=== PATIENT | male | born 1950 ===

== ENCOUNTER 2018-12-15 09:55 | Inpatient (IN) ==
--- NOTE | 2018-11-30 12:16 | PAT Medication Instructions ---
Medication Instructions Date of Service November 30, 2018 Home Medications amlodipine 5 mg oral daily in the morning atorvastatin 20 mg oral at bedtime diclofenac sodium 75 mg oral twice a day loratadine [Claritin] 10 mg oral daily in the evening metoprolol tartrate 25 mg oral twice a day multivitamin 1 tab oral daily in the morning venlafaxine [Effexor XR] 75 mg oral at bedtime Vinegar 1 tab oral twice a day aspirin [Aspir-Low] 81 mg oral daily in the evening tamsulosin 0.4 mg oral daily in the evening vitamin B complex 1 tab oral daily in the morning ASK your surgeon for instructions diclofenac sodium 75 mg oral twice a day DO NOT take the morning of surgery multivitamin 1 tab oral daily in the morning Vinegar 1 tab oral twice a day vitamin B complex 1 tab oral daily in the morning Take morning of surgery With a small sip of water, OTHERWISE NOTHING TO EAT OR DRINK AFTER MIDNIGHT: amlodipine 5 mg oral daily in the morning metoprolol tartrate 25 mg oral twice a day Take evening before surgery atorvastatin 20 mg oral at bedtime loratadine [Claritin] 10 mg oral daily in the evening metoprolol tartrate 25 mg oral twice a day venlafaxine [Effexor XR] 75 mg oral at bedtime Vinegar 1 tab oral twice a day tamsulosin 0.4 mg oral daily in the evening Other Notes If you have any questions please call us at [phone] or [phone] or [phone] or [phone]
--- NOTE | 2018-11-30 12:18 | Anesthesiology Consultation ---
Date of Service November 30, 2018 Assessment & Plan (1) Encounter for pre-operative examination: Chart Review Chart Review: Acceptable Risk for Surgery and Patient seen in Pre Admission Testing Teaching & Discussion Instructed NPO after midnight before surgery, except medications with 15 cc of water. Medication instructions provided according to the PAT guidelines. History Surgery Operation Date: 12/15/18 07:00 Proposed Procedures p Right Total Knee Replacement - Solitario Madrigal MD Height/Weight Height: 5 ft 9 in Weight: 123.9 kg Allergies Allergy/AdvReac Type Severity Reaction Status Date / Time No Known Allergies Allergy Verified 11/30/18 11:47 Medications Home Medications Medication Instructions Recorded Confirmed Last Taken Vinegar Tab 1 tab PO BID 11/30/18 11/30/18 Unknown amlodipine 5 mg PO QAM 11/30/18 11/30/18 Unknown aspirin [Aspir-Low] 81 mg PO QPM 11/30/18 11/30/18 Unknown atorvastatin [Lipitor] 20 mg PO HS 11/30/18 11/30/18 Unknown diclofenac sodium 75 mg PO BID 11/30/18 11/30/18 Unknown loratadine [Claritin] 10 mg PO QPM 11/30/18 11/30/18 Unknown metoprolol tartrate 25 mg PO BID 11/30/18 11/30/18 Unknown multivitamin 1 tab PO QAM 11/30/18 11/30/18 Unknown tamsulosin 0.4 mg PO QPM 11/30/18 11/30/18 Unknown venlafaxine [Effexor XR] 75 mg PO HS 11/30/18 11/30/18 Unknown vitamin B complex 1 tab PO QAM 11/30/18 11/30/18 Unknown Past Medical History Medical History Anxiety Episode of syncope Prompted cardiac workup, 05/2018. All testing WNL. Hyperlipidemia Hypertension Morbid obesity Osteoarthritis Urinary frequency AT HS Past Family History Family History Brother Family history of diabetes mellitus Past Surgical History Surgical History History of adenoidectomy History of arthroscopy LEFT SHOULDER History of cardiac cath OVER 10 YEARS AGO (NO STENTS) [facility]. DONE TO EVALUATE CP, CATH WAS NORMAL, CP RULED 2/2 CELEBREX History of colonoscopy History of knee surgery RT/LEFT LIGAMENT/TENDON REPAIRS History of tonsillectomy History of tooth extraction History of total knee replacement LEFT Past Anesthesia History No Hx of Anesthesia Complications and No Family Hx of Anesthesia Complications History of PONV No Motion Sickness Screening History of Motion Sickness: No Social History Smoking Status: Former smoker tobacco type: smokeless tobacco Do You Dip or Chew Tobacco: Yes (5 CANS WEEKLY) Smoking End Date: QUIT 50 YEARS AGO Hx Alcohol Use: Yes Alcohol type: beer and other alcohol intake frequency: holidays/special occasions only Alcohol Intake Frequency Comment: NO DRINK FOR 5 MONTHS (OTHER IS MOONSHINE) Hx Substance Use: No substance use type: does not use Exercise / Class Metabolic Activity II 4-5 Yardwork/Stairs/Walk up hill (denies CP or SOB with stairs) Review of Systems Pt denies any recent chest pain, shortness of breath, palpitations, cough, fever or URI. Physical Exam Vital Signs BP: 120/70 P: 67bpm SPO2: 95% RA T: 97.8 F R: 20 ENMT Mouth: + dentures (partial upper) and + small oral opening; no chipped teeth and no loose teeth Thyromental Distance: < 3.5 Finger Breadths (3) Mallampati Class: III Neck + thick neck and + facial hair (short tran and mustache); neck extension not limited Respiratory normal respiratory effort Auscultation: lungs clear to auscultation bilaterally Cardiovascular Rate/Rhythm: regular rate and regular rhythm Heart Sounds: no murmur Vessels: no carotid bruit Testing Electrocardiogram Date: 11/30/18 Findings: + NSR @ (66) Chest X-Ray Date: 11/16/18 Findings: + NAD Echocardiogram Date: 05/31/18 EF: 63% Left ventricular cavity size is normal. Left ventricular wall thickness is mildly increased. No LV mural thrombus. LV wall motion is normal. No significant valvular abnormalities. Other Testing Carotid Duplex 05/31/18 Less than 50% stenosis of both left and right internal carotid arteries. Holter Monitor 05/31/18 Duration: 24hrs Dominant Rhythm: SR 47-118bpm, avg 74bpm Few isolated PVCs and PACs, no VT or SVT. No symptoms reported. Laboratory Results Blood Type A Positive 11/30/18 12:34 Antibody Screen NEGATIVE 11/30/18 12:34 PT 10.3 Seconds (9.0-12.0) 11/30/18 12:34 INR 1.0 (0.9-1.1) 11/30/18 12:34 APTT 25.1 Seconds (21.0-31.0) 11/30/18 12:34 10/25/18 WBC: 6.5 H/H: 16.0/46.9 PLATELETS: 212 10/18/18 SODIUM: 141 POTASSIUM: 4.3 CHLORIDE: 105 CO2: 29 BUN: 16 CREATININE: 1.1 GLUCOSE: 127
[2018-11-30 13:18] LABS: Partial Thromboplastin Ratio 0.9; Partial Thromboplastin Time 25.1 Seconds (21.0-31.0); Prothrombin Time 10.3 Seconds (9.0-12.0)
--- NOTE | 2018-12-06 17:03 | History and Physical Report ---
DATE OF ADMISSION: 12/15/2018 CHIEF COMPLAINT: Right knee pain. HISTORY OF PRESENT ILLNESS: The patient is a 68-year-old gentleman from [place], who presents for surgical treatment of his right knee. He has got several-year history of increasing right knee pain and discomfort. He is well known to me from having his left knee replaced back in September of 2011. He has done well from this side. Over the years, his right knee started to bother him more and more. He has had injections in the past that most recently have not helped at all. Pain is mostly on the medial side, but a little bit globally. The more he walks, the more it hurts. He has difficulty putting his shoes and socks on. He has a limited walking tolerance. He has nighttime pain. He has difficulty going up and down stairs. He is not interested in further conservative treatment and would like to have his right knee replaced. Of note, the patient's knee pain has got significantly worse since April of this year when he sustained a syncopal episode and a fall. He had a negative workup. PAST MEDICAL HISTORY: Significant for: 1. Hypertension. 2. Elevated cholesterol. 3. Sleep apnea. 4. Hiatal hernia. 5. Arthritis. PAST SURGICAL HISTORY: Previous surgeries include: 1. Left knee open meniscectomy 25 years ago. 2. Left knee replacement on 10/01/2011. 3. Right knee arthroscopy. 4. Left shoulder surgery. ALLERGIES: None. CURRENT MEDICINES: Include: 1. Metoprolol 25 mg. 2. Amlodipine 5 mg. 3. Tamsulosin 0.4 mg. 4. Effexor 75 mg. 5. Diclofenac 75 mg twice a day. 6. Aspirin 81 mg a day. 7. Lipitor 20 mg a day. 8. Multivitamin. 9. B complex. 10. Vitamin pill. SOCIAL HISTORY: A 68-year-old male. He is from [facility] and more specifically [place]. He is . He does chew snuff. No significant alcohol intake. FAMILY HISTORY: Significant for heart disease. REVIEW OF HISTORY: Negative for diabetes, neurologic problems, vascular problems or bleeding disorders. Denies any chest pain or shortness of breath. No history of DVT or PE. No known bleeding problems. PHYSICAL EXAMINATION: GENERAL: Physical examination shows a healthy 68-year-old gentleman. Looks to be in pretty good health. HEENT: Benign. NECK: Supple. No lymphadenopathy. LUNGS: Clear to auscultation. HEART: Has a regular rate and rhythm. ABDOMEN: Soft, nontender, nondistended. EXTREMITIES: Grossly neurovascularly intact except as follows: Examination of the right knee reveals patient walks with a bit of a limp. He has got varus alignment to his knee. He is tender over the medial joint line. Small knee effusion. Range of motion is 5 to 125. No instability. He does have stiffness with hip motion, but minimal pain. X-RAYS: X-rays of the right knee revealed advanced medial compartment DJD. He has got complete loss of his medial joint space. He has got some tibial femoral subluxation. He has got chondrocalcinosis. X-rays of the hip show some moderate hip arthritis as well bilaterally. A little bit less severe than his knee. A little bit joint space remaining. ASSESSMENT: A 68-year-old gentleman 7 years out from left knee replacement with: 1. Advanced right knee degenerative joint disease. 2. Moderate to severe bilateral hip degenerative joint disease. PLAN: We talked about treatment options. He has failed conservative treatment and would like to proceed with surgical intervention. We talked both about hip and knee replacement surgery and his had a bad experience at [facility] with hip surgery and he has no interest in proceeding along this course, but would like his right knee replaced. Seems like most of his ____ is coming from his knee, I think that is reasonable at this point. We are going to take him to the operating room and do a right total knee replacement. The risks and benefits of this procedure were explained to the patient including but not limited to DVT, PE, , infection, neurological injury, vascular injury, bleeding problem, pain, limited range of motion, stiffness, failure to relieve the symptoms, incomplete relief of symptoms, need for further surgery in the future, fracture, leg length inequality, nerve palsy, etc. The patient understands and desires to proceed. Informed consent was obtained. I did tell him that he is going to likely have some residual pain and discomfort from his hips and he is fully aware of this. We did talk to him about taking his metoprolol the morning of surgery with a sip of water. He stopped his diclofenac 2 weeks preop. We will plan on DVT prophylaxis including TEDs, SCDs, and a baby aspirin twice a day.
[~2018-12-15 09:55] MED LIST: ACETAMINOPHEN 500 MG TAB PO SCH; BUPIVACAINE 0.5 % 5 MG/1 ML PF 10ML VIAL ONE; BUPIVACAINE LIPOSOME/PF 266 MG, BUPIVACAINE/EPINEPHRINE 50 ML, SODIUM CHLORIDE 0.9% 30 ... INFIL SCH; CEFAZOLIN 3000MG 65 ML IV SCH; EPINEPHrine INJ 1 MG/ML AMP ONE; FAMOTIDINE 20 MG TAB PO SCH; GABAPENTIN 300 MG PO SCH; LR 500ML BOLUS, THEN 15ML/HR IV SCH; LR 60ML/HR IV SCH; METOCLOPRAMIDE HCL 10 MG TABLET PO SCH; ROPIVACAINE 0.5% 5 MG/ML 30 ML VIAL ONE; SCOPOLAMINE 1.5 MG TDSY TD SCH; TRANEXAMIC ACID 1,000 MG **IV Intra-op IV SCH
--- NOTE | 2018-12-15 10:49 | History & Physical Bridge Note ---
Date of Service December 15, 2018 History & Physical Bridge Note I have examined the patient, reviewed the History & Physical and in the interval since the performance of the History & Physical I have noted the following changes of clinical significance: no changes noted
[2018-12-15] MEDS ORDERED: fentaNYL citrate 100 MCG/2 ML VIAL ONE (12:00)
[2018-12-15] MEDS ORDERED: MIDAZOLAM HCL 1 MG/ML 2ML VIAL ONE (12:00)
[2018-12-15] MEDS ORDERED: LIDOCAINE HCL 2% 2 ML VIAL/AMP(20MG/ML) INFIL ONE (12:00)
[2018-12-15] MEDS ORDERED: PROPOFOL IV EMULSION 10 MG/ML 20 ML VIAL IV ONE (12:00)
[2018-12-15] MEDS ORDERED: BACITRACIN INJ 50,000 UNIT VIAL ONE (12:36)
[2018-12-15] MEDS ORDERED: BUPIVACAINE/EPINEPHRINE 0.5% MPF 1:200,000 30 ML VIAL ONE (12:36)
[2018-12-15] MEDS ORDERED: BUPIVACAINE 0.25% 30 ML VIAL ONE (12:44)
[2018-12-15] MEDS ORDERED: EpINEphrine HCL INJ 1 MG/ML 1ML SYRINGE ONE (12:45)
[2018-12-15] MEDS ORDERED: BUPIVACAINE LIPOSOME 1.3% 266 MG/20 ML VIAL ONE (12:45)
[2018-12-15] MEDS ORDERED: SODIUM CHLORIDE 0.9% INJ 10 ML VIAL ONE (13:21)
[2018-12-15] MEDS ORDERED: ONDANSETRON INJ 2 MG/ML 2 ML VIAL ONE (13:27)
[2018-12-15] MEDS ORDERED: ePHEDrine sulfate 50 MG/ML SYR ONE (13:27)
[2018-12-15] MEDS ORDERED: PHENYLEPHRINE 100MCG/ML 5ML SYR ONE (13:27)
--- NOTE | 2018-12-15 14:38 | Post Operative Brief Note ---
Immediate Post Op Note v1 Date of Surgery December 15, 2018 Pre & Post Diagnosis Operation Date: 12/15/18 12:30 Pre-Op Diagnosis: Advanced Right Knee Degenerative Joint Desease Post-Op Diagnosis: Advanced Right Knee Degenerative Joint Desease Procedure Operation Date: 12/15/18 12:30 Actual Procedures p Right Total Knee Replacement(Right) - Solitario Madrigal MD Surgeon Solitario Madrigal MD [employer] [place], PAC Estimated Blood Loss 50 Findings Consistent with Post-Op Diagnosis Fluids 1400 cc Specimens Right Knee Drains Hansen Catheter Anesthesia Type Spinal MAC Complications none Disposition Disposition: Recovery Room
[2018-12-15] MEDS ORDERED: ePHEDrine sulfate 50 MG/ML AMP IV PRN (14:51)
[2018-12-15] MEDS ORDERED: ATROPINE SULFATE 0.1 MG/ML 10ML SYR IV PRN (14:51)
--- NOTE | 2018-12-15 14:56 | XRay Report ---
RIGHT KNEE 2 VIEWS History: Right total knee arthroplasty. Degenerative arthritis. Postop. FINDINGS: The patient is status post a right total knee arthroplasty. The hardware is intact. No frac ture or dislocation. Skin maurice are in place. IMPRESSION: Right total knee arthroplasty. No evidence for hardware complication. Electronically signed by: Kenneth Daily M.D. 12/15/2018 2:55 PM
--- NOTE | 2018-12-15 15:11 | Anesthesiology Progress Note ---
Date of Service December 15, 2018 Anesthesia Post Procedure Vital Signs Vital Signs: Temp Pulse Pulse Resp BP Pulse Ox 12/15/18 15:05 77 16 105/60 92 12/15/18 14:55 74 18 110/62 99 12/15/18 14:45 36.5 C 79 17 105/57 L 98 12/15/18 10:31 36.8 C 66 18 137/72 96 Notes Mental Status: alert / awake / arousable Patient Amnestic to Procedure: Yes Nausea / Vomiting: adequately controlled Pain: adequately controlled Airway Patency, RR, SpO2: stable & adequate BP & HR: stable & adequate Hydration State: stable & adequate Neuraxial Anesthesia: was administered and sensory block is resolving Anesthetic Complications: no major complications apparent
[2018-12-15] MEDS ORDERED: ALUMINUM/MAGNESIUM SUSP 30 ML UDC PO PRN (16:24)
[2018-12-15] MEDS ORDERED: HYDROmorphone INJ 0.5 MG/0.5 ML SYR IV PRN (16:24)
[2018-12-15] MEDS ORDERED: ONDANSETRON INJ 2 MG/ML 2 ML VIAL IV PRN (16:24)
[2018-12-15] MEDS ORDERED: METOCLOPRAMIDE HCL INJ 5 MG/ML 2 ML VIAL IV PRN (16:24)
[2018-12-15] MEDS ORDERED: BISACODYL 10 MG SUPP PR PRN (16:24)
[2018-12-15] MEDS ORDERED: TAMSULOSIN HCL 0.4 MG CAP PO PRN (16:24)
[2018-12-15] MEDS ORDERED: MAGNESIUM HYDROXIDE SUSP 30 ML UDC PO PRN (16:24)
[2018-12-15] MEDS ORDERED: NALOXONE HCL 0.4 MG/1 ML VIAL/CARP IV PRN (16:24)
--- NOTE | 2018-12-15 16:50 | Operative Report ---
DATE OF OPERATION: 12/15/2018 SURGEON: Solitario Madrigal MD [employer] MANAGEMENT SPECIALIST: KATELYN Lazaro PREOPERATIVE DIAGNOSIS: Right knee degenerative joint disease. POSTOPERATIVE DIAGNOSIS: Right knee degenerative joint disease. PROCEDURE PERFORMED: Right cemented posterior stabilized total knee arthroplasty. COMPLICATIONS: None. ESTIMATED BLOOD LOSS: 50 mL. FLUID REPLACEMENT: 1400 mL crystalloid fluid replacement. TOURNIQUET TIME: 60 minutes at 300 mmHg. ANESTHESIA: Spinal with adductor canal block. DRAINS: None. SPECIMENS: Right knee sent for pathology. OPERATIVE INDICATIONS: The patient is a 68-year-old gentleman who has had a long history of multiple joint problems and most specifically related to his knees. He underwent a left knee replacement several years ago and has done well from that. He continued to be bothered by right knee pain. He does have history of right knee scoped many years ago as well. He failed all conservative treatment. He elected to proceed with total knee arthroplasty on the right knee. OPERATIVE FINDINGS: Operative findings revealed advanced right knee DJD. He has extensive grade 4 changes in the medial and patellofemoral compartments. A varus deformity to his knee. He had a 10-degree flexion contracture. He had osteophytes, particularly posteriorly and medially. OPERATIVE IMPLANTS: Operative implants consisted of: 1. A Biomet Vanguard size 67.5 right posterior stabilized femoral component. 2. A Biomet size 75 tibial tray. 3. A 10 mm posterior stabilized polyethylene insert. 4. A 31 x 8 all poly patella. OPERATIVE PROCEDURE: The patient was taken to the operating room, identified and placed on the operating table in supine position. All contact areas were appropriately padded. IV antibiotics provided by anesthesia team. A spinal anesthetic and adductor canal block had been provided in the holding area. A Hansen catheter was placed in sterile fashion. Right thigh tourniquet was then placed and the right lower extremity was then prepped and draped in usual sterile fashion. The right leg was elevated and exsanguinated with Esmarch and tourniquet was placed at 300 mmHg. An anterior approach of the right knee was then performed through a longitudinal incision centered over the patella. Sharp dissection was carried through the subcutaneous tissue down to the level of the extensor mechanism. Medial parapatellar arthrotomy incision was made. Some subperiosteal dissection was carried out medially. The fat pad resected from beneath the patellar tendon. The lateral patellofemoral ligament was released. The patella was everted and knee was flexed. The osteophytes were taken off the distal femur. The ACL and PCL were then released from distal femur. The tibia subluxated anteriorly. External tibial alignment jig was then placed in the anterior face of the tibia and adjusted 16 mm medially. Proximal tibial cut was made to remove about a millimeter of bone from the most deficient aspect of the medial tibial plateau. Some osteophytes were taken off medial and posteromedially. Attention was then drawn to the femur. The distal femur was entered with a sharp drill bit. Intramedullary canal was suctioned. A right 6-degree valgus cutting guide was placed. Distal femoral cutting block was pinned in place. Distal femoral cut was made to take an additional 3 mm of bone off the distal femur. The femur was then sized to a size 67.5. We did downsize this slightly. The AP cutting block was pinned parallel to the epicondylar axis, which was 4 degrees of external rotation. The anterior cut, anterior chamfer cut, posterior cut, posterior chamfer cuts were made. Box cutting guide was placed and adjusted slightly lateral and the box cut was made. The knee was flexed. The remnants of the medial and lateral menisci were excised. The osteophytes were taken off the posterior aspect of the femur. Trial femoral component was placed. Tibial tray was pinned in maximum external rotation and the drill and stem punch were used to create defect in proximal tibia for the tibial tray. The knee was then trialed and the 10 mm insert fit most appropriately. Attention was then drawn to the patella. The patella was cleaned of all soft tissues. Patella thickness measured 22 mm in thickness, it was cut down to 14. It was sized to a size 31 patella. Lug holes were drilled for 31 patella. The lateral osteophyte was removed. Patella button was placed. Knee was taken through range of motion and patella tracked nicely with no thumbs test. Attention was then drawn toward placement of the permanent components. All trial components removed. Bone plug was placed in the distal femur to limit blood loss. A double batch of Palacos G cement was mixed. A Biomet Vanguard size 67.5 right posterior stabilized femoral component, size 75 tibial tray, a 10 mm posterior stabilized polyethylene insert, and a 31 x 8 all poly patella then cemented in place. Knee was brought down into full extension until cement hardened. A final cement check was then performed. Pericapsular tissues were injected with a total of 100 mL of combination of 20 mL of Exparel, 30 mL of normal saline, 50 mL of 0.25% Marcaine with epinephrine. The patient did receive 1 gram of tranexamic acid. The tourniquet was then let down for a tourniquet time of 60 minutes. Hemostasis was assured using electrocautery. The extensor mechanism was then closed with a combination of #1 PDS suture and #1 Vicryl suture in [id number] fashion. Extensor mechanism was checked and found to be intact. The subcutaneous tissue was then closed with #2 Dexon suture in a buried interrupted fashion. Skin was closed with skin maurice. Leg was then cleaned and dried and a sterile dressing of Xeroform, 4 x 4, sterile cast padding and Malcolm bandage were applied. The patient then transferred to the recovery room in stable condition. The patient tolerated the procedure well with no complication. All needle and sponge counts were correct at the end of the operation. I attest to the content of the Intraoperative Record and any orders documented therein. Any exception s are noted below.
[2018-12-15] MEDS: CHECK SCOPOLAMINE PATCH PLACEMENT SCH (17:35)
[2018-12-15] MEDS: SODIUM CHLORIDE 0.9% 1000ML 1,000 ML IV SCH (17:35)
[2018-12-15] MEDS: ASCORBIC ACID 500 MG TAB PO SCH (17:37)
[2018-12-15] MEDS: FERROUS GLUCONATE 324 MG TAB PO SCH (17:38)
[2018-12-15] MEDS: KETOROLAC TROMETHAMINE 15 MG/ML VIAL IV SCH (17:38)
[2018-12-15] MEDS: OXYCODONE HCL IR 5 MG TAB (IMMEDIATE RELEASE) PO PRN (20:49)
[2018-12-15] MEDS: LORATADINE 10 MG TAB PO SCH (20:55)
[2018-12-15] MEDS: METOPROLOL TARTRATE 25 MG TAB PO SCH (20:55)
[2018-12-15] MEDS: ASPIRIN 81 MG ECTAB PO SCH (20:56)
[2018-12-15] MEDS: DOCUSATE SODIUM 100 MG CAP PO SCH (20:56)
[2018-12-15] MEDS: VENLAFAXINE HCL XR 75 MG CAPXR PO SCH (20:56)
[2018-12-15] MEDS: SENNA 8.6 MG TAB PO SCH (20:57)
[2018-12-15] MEDS: TAMSULOSIN HCL 0.4 MG CAP PO SCH (20:57)
[2018-12-15] MEDS: ATORVASTATIN 20 MG TAB PO SCH (20:57)
[2018-12-15] MEDS ORDERED: VINEGAR PO SCH (21:00)
[2018-12-15] MEDS ORDERED: TRANEXAMIC ACID 1,000 MG in 0.9 % SODIUM CHLORIDE 100 ML IV SCH (21:00)
[2018-12-15] MEDS: ACETAMINOPHEN 500 MG TAB PO SCH (21:00)
[2018-12-15] MEDS: CEFAZOLIN 2000MG 2,000 MG/15 ML SYR IV SCH (21:00)
[2018-12-15] MEDS: TAPENTADOL HCL ER 50 MG TABCR PO SCH (21:00)
[2018-12-16] MEDS: CHECK SCOPOLAMINE PATCH PLACEMENT SCH (00:14)
[2018-12-16] MEDS: KETOROLAC TROMETHAMINE 15 MG/ML VIAL IV SCH ×5 (00:14→23:09)
[2018-12-16] MEDS: SODIUM CHLORIDE 0.9% 1000ML 1,000 ML IV SCH (03:00)
[2018-12-16] MEDS: ACETAMINOPHEN 500 MG TAB PO SCH ×3 (05:43→21:28)
[2018-12-16] MEDS: CEFAZOLIN 2000MG 2,000 MG/15 ML SYR IV SCH (05:43)
[2018-12-16 05:51] LABS: Hematocrit (blood only) 36.2 % (42-52); Hemoglobin 12.5 g/dL (14.0-18.0); Mean Corpuscular Hgb Conc 34.5 g/dL (32-36); Mean Corpuscular Volume 88.9 fL (80-100); Platelet Count 156 K/uL (130-400); RDW Coefficient of Variation 12.5 % (11.5-14.5); RDW Standard Deviation 40.4 fL (36.4-46.3); Red Blood Count 4.07 M/uL (4.7-6.1); White Blood Count 7.85 K/uL (4.8-10.8)
[2018-12-16 06:16] LABS: BUN Creatinine Ratio 16.1 (10-20); Calcium 8.1 mg/dl (8.5-10.1); Creatinine Clr Calc Pharmacy 95.1 ml/min; Est GFR (African American) 91.6; Potassium 4.2 mmol/L (3.5-5.1)
[2018-12-16] MEDS: ASPIRIN 81 MG ECTAB PO SCH ×2 (08:28→21:28)
[2018-12-16] MEDS: DOCUSATE SODIUM 100 MG CAP PO SCH ×2 (08:28→21:28)
[2018-12-16] MEDS: FERROUS GLUCONATE 324 MG TAB PO SCH ×2 (08:28→17:28)
[2018-12-16] MEDS: MULTIVITAMIN TAB PO SCH (08:28)
[2018-12-16] MEDS: ASCORBIC ACID 500 MG TAB PO SCH ×2 (08:28→17:28)
[2018-12-16] MEDS: AMLODIPINE BESYLATE 5 MG TAB PO SCH (08:29)
[2018-12-16] MEDS: METOPROLOL TARTRATE 25 MG TAB PO SCH ×2 (08:29→21:29)
[2018-12-16] MEDS: VITAMIN B COMPLEX TAB PO SCH (08:30)
[2018-12-16] MEDS: TAPENTADOL HCL ER 50 MG TABCR PO SCH ×2 (08:44→21:28)
[2018-12-16] MEDS ORDERED: MULTIVITAMIN TAB PO SCH (09:00)
--- NOTE | 2018-12-16 09:22 | Progress Note ---
DATE: 12/16/2018 SUBJECTIVE: A 68-year-old gentleman postop day 1 from right knee replacement. He is doing okay. Quite a bit of pain last evening. Doing a little bit better this morning. No chest pain or shortness of breath. Not feeling dizzy or lightheaded. OBJECTIVE: VITAL SIGNS: Temperature 36.7. Vital signs stable. GENERAL: Physical examination shows a pleasant, middle-aged male. He is sitting up in bed, looks reasonably comfortable. LUNGS: Clear to auscultation. HEART: Regular rate and rhythm. ABDOMEN: Soft, nontender, nondistended. EXTREMITIES: Grossly neurovascularly intact except as follows: Examination of the right lower extremity reveals the leg to be well aligned. Dressing is clean, dry and intact. No drainage. He can dorsiflex and plantarflex his foot appropriately. LABORATORY DATA: Hemoglobin 12.5, hematocrit 36.2. Electrolytes are stable. ASSESSMENT: A 68-year-old gentleman postop day 1 from right knee replacement, doing pretty well. Pretty painful at times, which is unexpected. Seems to respond to the pain medicine. PLAN: 1. DVT prophylaxis including thigh-high TEDs, SCDs, and aspirin twice a day. 2. PT/OT. Weight bear as tolerated. Right total knee protocol. 3. Pain control, doing pretty well with current pain regimen. Reports quite a bit of pain, but looks reasonably comfortable and seems pretty happy with the pain medicine. 4. Disposition: Plan to discharge to home with some home health once adequately recovered.
[2018-12-16] MEDS: OXYCODONE HCL IR 5 MG TAB (IMMEDIATE RELEASE) PO PRN ×3 (09:32→19:21)
--- NOTE | 2018-12-16 09:51 | Anesthesiology Progress Note ---
Date of Service December 16, 2018 Anesthesia Post Procedure Vital Signs Vital Signs: Temp Pulse Pulse Resp BP Pulse Ox 12/16/18 07:43 36.7 C 64 18 102/67 92 12/16/18 03:01 36.8 C 71 18 109/58 L 91 12/15/18 23:37 37.1 C 71 18 134/61 90 12/15/18 20:00 36.5 C 76 20 150/70 H 91 12/15/18 18:54 36.6 C 78 20 127/69 96 12/15/18 17:54 36.5 C 68 20 122/74 98 12/15/18 17:25 36.8 C 61 20 119/71 99 12/15/18 16:25 36.8 C 78 20 110/77 98 12/15/18 15:55 36.7 C 71 18 107/59 L 96 12/15/18 15:30 36.6 C 83 18 123/65 96 12/15/18 15:13 36.6 C 76 16 113/55 L 95 12/15/18 15:05 77 16 105/60 92 12/15/18 14:55 74 18 110/62 99 12/15/18 14:45 36.5 C 79 17 105/57 L 98 12/15/18 10:31 36.8 C 66 18 137/72 96 Pain Intensity Right Knee: Pain Intensity: 8 Notes Mental Status: alert / awake / arousable and participated in evaluation Patient Amnestic to Procedure: Yes Nausea / Vomiting: adequately controlled Pain: adequately controlled Airway Patency, RR, SpO2: stable & adequate BP & HR: stable & adequate Hydration State: stable & adequate Neuraxial Anesthesia: was administered and sensory block resolved Anesthetic Complications: no major complications apparent and Pt Satisfied with anesthetic care
[2018-12-16] MEDS: TAMSULOSIN HCL 0.4 MG CAP PO SCH (21:28)
[2018-12-16] MEDS: VENLAFAXINE HCL XR 75 MG CAPXR PO SCH (21:28)
[2018-12-16] MEDS: LORATADINE 10 MG TAB PO SCH (21:28)
[2018-12-16] MEDS: ATORVASTATIN 20 MG TAB PO SCH (21:28)
[2018-12-16] MEDS: SENNA 8.6 MG TAB PO SCH (21:28)
[2018-12-17] MEDS: ACETAMINOPHEN 500 MG TAB PO SCH (05:52)
[2018-12-17] MEDS: KETOROLAC TROMETHAMINE 15 MG/ML VIAL IV SCH (05:53)
[2018-12-17] MEDS: FERROUS GLUCONATE 324 MG TAB PO SCH (07:38)
[2018-12-17] MEDS: METOPROLOL TARTRATE 25 MG TAB PO SCH (07:39)
[2018-12-17] MEDS: ASCORBIC ACID 500 MG TAB PO SCH (07:39)
[2018-12-17] MEDS: DOCUSATE SODIUM 100 MG CAP PO SCH (07:39)
[2018-12-17] MEDS: AMLODIPINE BESYLATE 5 MG TAB PO SCH (07:39)
[2018-12-17] MEDS: MULTIVITAMIN TAB PO SCH (07:39)
[2018-12-17] MEDS: ASPIRIN 81 MG ECTAB PO SCH (07:40)
[2018-12-17] MEDS: VITAMIN B COMPLEX TAB PO SCH (07:40)
[2018-12-17] MEDS: TAPENTADOL HCL ER 50 MG TABCR PO SCH (08:48)
[2018-12-17] MEDS: OXYCODONE HCL IR 5 MG TAB (IMMEDIATE RELEASE) PO PRN (10:54)
--- NOTE | 2018-12-17 12:33 | Progress Note ---
DATE: 12/17/2018 SUBJECTIVE: A 68-year-old gentleman postop day 2 from right knee replacement. He is doing well. Pain is better today. No chest pain or shortness of breath. Not feeling dizzy or lightheaded. Seems to be responding to the pain medicine. OBJECTIVE: VITAL SIGNS: Temperature 37.0. Vital signs stable. GENERAL: Physical examination reveals a pleasant, middle-aged male, obese, sitting up in his bed with his legs dangling over the edge. He looks pretty comfortable and drinking some coffee. EXTREMITIES: Examination of the right leg reveals the dressing to be clean, dry and intact. Fairly mild swelling. Minimal drainage. His calf is soft and supple. He is neurologically intact. ASSESSMENT: A 68-year-old gentleman postop day 2 from right knee replacement, doing well. The pain is controlled. PLAN: 1. DVT prophylaxis including thigh-high TEDs, SCDs, and aspirin twice a day. 2. PT/OT. Weight bear as tolerated. Right total knee protocol. 3. Pain control, doing well with current pain regimen. 4. Disposition: Plan to discharge to home with some home health later today.
--- NOTE | 2018-12-18 16:49 | Discharge Summary ---
ADMITTING PHYSICIAN AND SURGEON: Dr. Solitario Madrigal. ADMITTING DIAGNOSIS: Right knee degenerative joint disease. SURGERY PERFORMED: Right total knee arthroplasty. SECONDARY DIAGNOSES: Hypertension, elevated cholesterol, sleep apnea, hiatal hernia, arthritis. CONSULTS: None obtained. HISTORY AND PHYSICAL EXAMINATION: Well documented in the patient's chart. HOSPITAL COURSE: The patient was admitted on 12/15/2018 underwent total knee arthroplasty, tolerated the procedure well with no complications. He was transferred to the PACU postoperatively and later to the orthopedic for further care. He was given Ancef for antibiotic prophylaxis, JUSTINO stockings, SCDs and aspirin for DVT prophylaxis. Hemoglobin, hematocrit and vital signs were monitored during his hospital stay and remained stable, did not require any blood transfusions. There were no complications. By postoperative day 2 he was tolerating a regular diet, pain was controlled with oral pain medicine. He was participating in physical therapy. Postop day 2 he was discharged home, set up with home health services, given printed discharge instructions including new prescriptions for extra strength Tylenol, aspirin, and oxycodone. Continue his home medicines with the exception of his home dose of aspirin which was just changed. Continue physical therapy, weightbearing as tolerated, JUSTINO stockings. Follow up approximately 2 weeks postoperatively or sooner if there are any problems or concerns.
== END 2018-12-17 12:05 | disposition home health service (06) | DRG 470 ==
LOC: ASU 09:55 → 3E 14:47